=== PATIENT | female | born 1960 | race Caucasian/White ===

== ENCOUNTER → 2018-01-03 09:31 | Outpatient (CLI) | payer OTHER, SELFPAY ==
[2018-01-03 11:39] LABS: Add Manual Diff / Slide Review NO; Basophils Percent Auto 0.7 % (0-2); Eosinophils Percent Auto 1.3 % (2-4); Hematocrit 44.1 % (36-46); Hemoglobin 14.7 g/dL (12.0-16.0); Mean Corpuscular HGB Conc 33.2 % (30-36); Mean Corpuscular Hemoglobin 30.7 PG (26-34); Mean Corpuscular Volume 92.3 fL (80-100); Neutrophils Absolute Auto 3500 /uL (3000-5900); Platelet Count 161 X10^3/uL (150-400); Red Blood Cell Count 4.78 X10^6/uL (4.0-5.2); White Blood Cell Count 5.2 X10^3/uL (4.5-11.0)
[2018-01-03 12:10] LABS: Alanine Aminotransferase 19 IU/L (9-52); Albumin 4.3 g/dL (3.5-5.0); Albumin Globulin Ratio 1.2 (1.0-2.8); Alkaline Phosphatase 82 U/L (38-126); Aspartate Aminotransferase 22 IU/L (14-36); BUN Creatinine Ratio 21.3 (6-22); Bilirubin Total 0.5 mg/dL (0.2-1.3); Blood Urea Nitrogen 17 mg/dL (7-17); Calcium 9.7 mg/dL (8.4-10.2); Carbon Dioxide 29 mmol/L (22-32); Chloride 105 mmol/L (98-107); Estimated Glomerular Filt Rate > 60.0 mL/min (>60); Globulin 3.5 g/dL (1.7-4.1); Glucose 89 mg/dL (70-100); HEMOLYSIS 24 (0-50); Lactate Dehydrogenase 409 U/L (313-618); Potassium 4.4 mmol/L (3.4-5.1); Sodium 145 mmol/L (137-145); Total Protein 7.8 g/dL (6.3-8.2)
== END ==
PROVIDERS: Family Provider Family Medicine; PCP Family Medicine; Visit Provider Nurse Practitioner Gerontology
DX: C81.90 Hodgkin lymphoma, unspecified, unspecified site (principal)
CPT/HCPCS: 36415; 80053; 83615; 85025

== ENCOUNTER 2018-01-08 11:14 | Oncology outpatient (ONC) | payer OTHER, SELFPAY ==
--- NOTE | 2018-01-08 08:29 | P.PNONC_ITS ---
Assessment and Plan (1) Hodgkin lymphoma Onset Date: 07/18/16 Current visit: No Status: None 01/08/18 08:29 No looks great today. She appears to be in continued complete remission regarding her stage IIA Hodgkin disease. Patient and her anticipate moving out of the area noting her recently retired from the [employer] and is looking for work elsewhere. RTC in 6 months for provider visit, cbc, cmp, LDH. We will also repeat CT to further eval previously identified although stable subcentimeter hypodensity within liver, most likely small hemangioma. Also re-evaluate 3 cm cyst on right ovary. If this CT is stable no further surveillance imaging would likely be indicated unless clinical changes. Patient verbalizes understanding and agrees with the above plan of care. 01/08/18 12:50 01/08/18 12:52 PN -Subjective Interval history: 1. 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 Ultimately treated with 4 cycles of ABVD chemotherapy, completed on 11/09/2014 and followed by involved field radiation from 2014 through 01/07/2015. Now, basically 3 years out from completion of chemotherapy. 2. ultrasound and CT scanning also confirmatory of a stable 3 cm cyst involving the right ovary. Last ultrasound surveillance, mid July 2016. Last CT scan surveillance of the chest, abdomen, and pelvis on 09/17/2016. 3. Remote history of melanoma involving her lower left leg. Katia presents today with her . She has no acute complaints on exam today whatsoever. Overall feeling quite well. Her recently retired from the [employer] the patient and her have been in joining some travel. Activity tolerance is excellent. No night sweats although the patient does think she is having some ?hot flashes?. No new pain. No new lumps or bumps. No issue with bowel movements. No recent illnesses or infections. Home Medications and Allergies Home Medications Medication Instructions Recorded Confirmed Type acetaminophen 325 mg PO PRN PRN #0 03/23/16 History calcium carbonate [Tums] 100 mg PO QDAY PRN #0 03/23/16 History ascorbic acid (vitamin C) 500 mg PO EVERY OTHER DAY #0 09/21/16 History Allergies Allergy/AdvReac Type Severity Reaction Status Date / Time naproxen [From ALEVE] AdvReac Unknown Unverified 08/14/17 12:39 PINE NUTS AdvReac Unknown Uncoded 08/14/17 12:39 Exam - Constitutional positive no acute distress, positive average body habitus - Routine HEENT Exam Eye: Present: conjunctivae pink. Absent: conjunctival icterus, scleral injection ENT: Present: mucous membranes moist, oropharynx clear - Routine Neck Exam Present: supple. Absent: lymphadenopathy - Routine Chest/Breast/Axilla Exam Axillae: Absent: lymphadenopathy, mass, tenderness - Routine Respiratory Exam Present: Clear to auscultation bilaterally. Absent: rales, rhonchi, wheezes - Routine Cardiovascular Exam Present: RRR, S1, S2. Absent: murmur, gallop, rubs, JVD - Routine Abdominal Exam Present: soft, normoactive bowel sounds. Absent: tenderness, distended, organomegaly, mass - Routine Extremities Exam Absent: edema, calf tenderness - Routine Skin Exam Present: intact, normal turgor. Absent: petechiae, rash - Routine Neurological Exam Present: alert, oriented X3 - Routine Psychiatric Exam Present: normal affect
[2018-01-08 11:53] VITALS: BP 124/80; PULSE 78; RESP 18; TEMP 36.8; O2SAT 100
== END 2018-01-09 14:54 | disposition home or self-care (01) ==
LOC: ONC 11:18
PROVIDERS: Family Provider Family Medicine; PCP Family Medicine; Visit Provider Nurse Practitioner Gerontology
DX: Z85.71 Personal history of Hodgkin lymphoma (principal); Z08 Encounter for follow-up examination after completed treatment for malignant neoplasm; N83.201 Unspecified ovarian cyst, right side; Z85.820 Personal history of malignant melanoma of skin
CPT/HCPCS: 99214

== ENCOUNTER → 2018-07-11 08:20 | Outpatient (CLI) | payer OTHER, SELFPAY ==
--- NOTE | 2018-07-11 08:29 | DI.CT.S_ITS ---
PROCEDURE: CT CHEST ABD PEL W CON INDICATIONS: surveillance breast cancer TECHNIQUE: After the administration of oral and intravenous contrast, 5 mm thick sections acquired from the lung apices to the symphysis. 5 mm coronal and sagittal reformats were performed, with additional 7 mm coronal MIP reformats through the lungs. For radiation dose reduction, the following was used: automated exposure control, adjustment of mA and/or kV according to patient size. COMPARISON: Outside Facility, , CT PET, 02/17/2015, 8:14. [facility], , US PELVIC COMPLETE, 09/09/2017, 8:38. [facility], , PELVIC COMPLETE, 01/16/2017, 8:52. Outside Facility, , CT THORAX/ABDOMEN/PELVIS WITH CONTRAST, 12/16/2015, 13:57. [facility], CT, CHEST/ABD/PEL WITH CONTRAST, 09/17/2016, 10:14. FINDINGS: Image quality: Excellent. CHEST: Lungs and pleura: No acute airspace opacities. No pleural effusions or pneumothorax. Central and peripheral airways appear patent and normal in caliber. Mediastinum: Heart size is normal. No pericardial effusion. No mediastinal or hilar adenopathy by size criteria. Thoracic aorta and central pulmonary arteries are normal in size. Esophagus is normal in caliber. No hiatal hernia. Chest wall: No axillary or supraclavicular adenopathy by size criteria. Thyroid gland is normal. ABDOMEN: Solid organs: A 5 mm indeterminate hepatic hypodensity in the anterior segment of the right hepatic lobe appears unchanged. Liver is normal in size and enhancement. Gallbladder is normal. Biliary system is non dilated. Pancreas enhances normally. Spleen is normal in size and enhancement. No adrenal nodules. Kidneys demonstrate normal size and enhancement, without hydronephrosis. Peritoneum and bowel: Bowel loops demonstrate normal wall thickness and caliber. There are scattered colonic diverticula. No free fluid or air. Nodes and vessels: No retroperitoneal or mesenteric adenopathy by size criteria. Aorta and inferior vena cava are normal in size. Miscellaneous: No ventral hernias. PELVIS: Genitourinary: Bladder wall thickness is normal. Miscellaneous: No inguinal hernias or adenopathy. Bones: No suspicious bony lesions. No vertebral body compression fractures. IMPRESSION: 1. No evidence for recurrent disease. 2. No lymphadenopathy in thorax, abdomen or pelvis. 3. Stable 5 mm indeterminate hepatic hypodensity. 4. Diverticulosis without acute diverticulitis. Dictated by: Mitch Pittman M.D. on 07/11/2018 at 13:57 Approved by: Mitch Pittman M.D. on 07/11/2018 at 18:07
[2018-07-11 08:54] LABS: Add Manual Diff / Slide Review NO; Basophils Absolute Auto 0 /uL (0-100); Basophils Percent Auto 0.5 % (0-2); Eosinophils Absolute Auto 100 /uL (0-450); Eosinophils Percent Auto 1.8 % (2-4); Hematocrit 44.9 % (36-46); Hemoglobin 14.8 g/dL (12.0-16.0); Lymphocytes Absolute Auto 1200 /uL (1100-4500); Lymphocytes Percent Auto 20.9 % (25-40); Mean Corpuscular HGB Conc 33.1 % (30-36); Mean Corpuscular Hemoglobin 30.8 PG (26-34); Mean Corpuscular Volume 93.1 fL (80-100); Monocytes Absolute Auto 300 /uL (0-900); Monocytes Percent Auto 6.1 % (3-14); Neutrophils Absolute Auto 4000 /uL (1500-7000); Neutrophils Percent Auto 70.7 % (50-75); Platelet Count 172 X10^3/uL (150-400); Red Blood Cell Count 4.82 X10^6/uL (4.0-5.2); Red Cell Distribution Width 13.1 % (11.6-14.8); White Blood Cell Count 5.7 X10^3/uL (4.5-11.0)
[2018-07-11 09:25] LABS: Alanine Aminotransferase 28 IU/L (9-52); Albumin 4.6 g/dL (3.5-5.0); Albumin Globulin Ratio 1.3 (1.0-2.8); Alkaline Phosphatase 81 U/L (38-126); Aspartate Aminotransferase 18 IU/L (14-36); BUN Creatinine Ratio 24.3 (6-22); Bilirubin Total 0.5 mg/dL (0.2-1.3); Blood Urea Nitrogen 17 mg/dL (7-17); Calcium 9.7 mg/dL (8.4-10.2); Carbon Dioxide 28 mmol/L (22-32); Chloride 100 mmol/L (98-107); Estimated Glomerular Filt Rate > 60.0 mL/min (>60); Globulin 3.6 g/dL (1.7-4.1); Glucose 90 mg/dL (70-100); HEMOLYSIS < 15 (0-50); Lactate Dehydrogenase 406 U/L (313-618); Potassium 4.1 mmol/L (3.4-5.1); Sodium 139 mmol/L (137-145); Total Protein 8.2 g/dL (6.3-8.2)
== END ==
PROVIDERS: Family Provider Family Medicine; PCP Family Medicine; Visit Provider Nurse Practitioner Gerontology
DX: C81.90 Hodgkin lymphoma, unspecified, unspecified site (principal); K57.90 Diverticulosis of intestine, part unspecified, without perforation or abscess without bleeding
CPT/HCPCS: 36415; 71260; 74177; 80053; 83615; 85025; Q9967

== ENCOUNTER → 2018-07-15 10:13 | Oncology outpatient (ONC) | payer OTHER, SELFPAY ==
--- NOTE | 2018-07-15 10:30 | P.PNONC_ITS ---
PN -Subjective Interval history: The patient is a 57-year-old female who presents to clinic today for routine scheduled surveillance visit. She carries a diagnosis of: 1. 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 Ultimately treated with 4 cycles of ABVD chemotherapy, completed on 11/09/2014 and followed by involved field radiation from 12/21/2014 through 01/07/2015. 2. Recent ultrasound and CT scanning also confirmatory of a stable 3 cm cyst involving the right ovary. Last ultrasound surveillance, mid July 2016. Previous CT scan surveillance of the chest, abdomen, and pelvis on 09/17/2016. 3. Remote history of melanoma involving her lower left leg. On exam today the pt reports overall rather good health. She has not been sick or hospitalized since her previous visit. Her has just retired from the [employer] he will be working in [employer] plan is to move to a new home in [place]. Patient denies night sweats. Appetite is stable, weight is stable. Activity tolerance is stable. No unexplained pain, no unexplained lumps or bumps. No skin changes. Most recent screening colonoscopy was 2015 with recommendation to repeat in 10 years. Most recent mammogram was approximately [address] scan dated July 11, 2018 demonstrates no evidence of recurrent disease. Specifically no lymphadenopathy in thorax, abdomen or pelvis. These results were reviewed in detail with the patient. Home Medications and Allergies Home Medications Medication Instructions Recorded Confirmed Type acetaminophen 325 mg PO PRN PRN #0 03/23/16 History calcium carbonate [Tums] 100 mg PO QDAY PRN #0 03/23/16 History ascorbic acid (vitamin C) 500 mg PO EVERY OTHER DAY #0 09/21/16 History Allergies Allergy/AdvReac Type Severity Reaction Status Date / Time naproxen [From ALEVE] AdvReac Unknown Unverified 08/14/17 12:39 PINE NUTS AdvReac Unknown Uncoded 08/14/17 12:39 Exam Vital signs: Intake and Output 07/14/18 07/15/18 07/15/18 23:59 07:59 15:59 Other: Weight 91.3 kg Patient Weight 07/16/18 07:59 Weight 91.3 kg - Constitutional positive no acute distress - Routine HEENT Exam Eye: Present: conjunctivae pink. Absent: conjunctival icterus, scleral injection ENT: Present: mucous membranes moist, oropharynx clear - Routine Neck Exam Present: supple. Absent: lymphadenopathy - Routine Chest/Breast/Axilla Exam Axillae: Absent: lymphadenopathy, mass, tenderness - Routine Respiratory Exam Present: Clear to auscultation bilaterally. Absent: rales, rhonchi, wheezes - Routine Cardiovascular Exam Present: RRR, S1, S2. Absent: murmur, gallop, rubs, JVD - Routine Abdominal Exam Present: soft, normoactive bowel sounds. Absent: tenderness, distended, organomegaly - Routine Extremities Exam Absent: edema, calf tenderness - Routine Skin Exam Present: intact, normal turgor. Absent: rash - Routine Neurological Exam Present: alert, oriented X3 - Routine Psychiatric Exam Present: normal affect Assessment and Plan (1) Hodgkin lymphoma Onset Date: 07/18/16 Current visit: No Status: Chronic The patient is a 57-year-old female who we follow in this clinic for a diagnosis of stage IIA Hodgkin's lymphoma. She completed chemotherapy and involved radiation January of 2015. Reassuringly on exam today no clinical signs or symptoms to suggest disease recurrence. Additionally, CT scan of chest abdomen pelvis with contrast July 11, 2018 was without evidence of disease as well. CBC, CMP unremarkable. LDH is within normal limits. Return to clinic in 6 months time for provider visit CBC, CMP, LDH.
[2018-07-15 10:43] VITALS: BP 123/81; PULSE 73; RESP 18; TEMP 37; O2SAT 100
== END ==
PROVIDERS: Family Provider Family Medicine; PCP Family Medicine; Visit Provider Nurse Practitioner Gerontology
DX: Z08 Encounter for follow-up examination after completed treatment for malignant neoplasm (principal); Z85.71 Personal history of Hodgkin lymphoma; Z85.820 Personal history of malignant melanoma of skin
CPT/HCPCS: 99214